=== PATIENT | female | born 2000 | race Caucasian/White ===

== ENCOUNTER 2018-06-02 17:22 | Emergency (ER) | payer BC ==
--- NOTE | 2018-06-02 17:10 | EDPHY ---
H & P Time Seen by Provider: 06/02/18 17:22 Constitutional: Initial Vital Signs Temperature (C) 36.7 C 06/02/18 17:22 Heart Rate 66 06/02/18 17:22 Respiratory Rate 16 06/02/18 17:22 Blood Pressure 104/75 06/02/18 17:22 O2 Sat (%) 100 06/02/18 17:22 O2 Delivery Mode Room Air Allergies/Adverse Reactions: No Known Allergies Allergy (Unverified 06/02/18 17:31) Home Medications: Medication Instructions Recorded NK [No Known Home Meds] 06/02/18 Medical Decision Making - Diagnostics Imaging Results: Imaging Impressions Head CT 06/02/18 17:27 Impression: Negative noncontrast CT of the head with no intracranial posttraumatic sequela identified. Results called and discussed with Mina Rosado MD on 06/02/2018 at 17:53. Imaging: Discussed imaging studies w/ personal injury law specialist Radiologist, I viewed and interpreted images myself ED Course/Re-evaluation: CHIEF COMPLAINT: Head injury while snowboarding HISTORY OF PRESENT ILLNESS: The patient is a 17 y/o female arriving via EMS after hitting a tree while snowboarding at [facility]. Per EMS the patient ran into a tree backwards with enough force to crack her helmet. It is unknown how fast she was going. The patient cannot remember the events prior to or after the collision. She also lost consciousness after the impact. Currently she has a frontal headache and generalized neck pain. She has not pain in her extremities and is not complaining of any other injury. No fever, body aches, lightheadedness, chest pain, heart palpitations, shortness of breath, cough, abdominal pain, urinary or bowel complaints, numbness, paresthesias. REVIEW OF SYSTEMS: A comprehensive 10 system review of systems is otherwise negative aside from elements mentioned in the history of present illness and medical decision making. PHYSICAL EXAM: HR, BP, O2 Sat, RR. Temp noted General Appearance: Alert, well hydrated, and non-toxic appearing. Head: Atraumatic without scalp tenderness or obvious injury Eyes: Pupils equal, round, reactive to light and accommodation, EOMI, no trauma , no injection. Ears: Clear bilaterally, no perforation, normal landmarks Nose: Atraumatic, no rhinorrhea, clear. Throat: There is no erythema or exudates, no lesions, normal tonsils, mucus membranes moist. Neck: Supple, 2+ carotid upstroke, nontender, no lymphadenopathy. Respiratory: No retractions, no distress, no wheezes, and no accessory muscle use. Lungs are clear to auscultation bilaterally. Cardiovascular: Regular rate and rhythm, no murmurs, rubs, or gallops. Bilateral carotid, radial, dorsalis pedis, and posterior tibial pulses intact. Good capillary refill all extremities. Gastrointestinal: Abdomen is soft, nontender, non-distended, no masses, no rebound, no guarding, no peritoneal signs. Musculoskeletal: Normal active ROM of all extremities, atraumatic. Neurological: Alert, appropriate, and interactive. Patient as anterograde and retrograde amnesia with loss of consciousness of an unknown time. The patient has normal DTRs and non-focal cranial nerves, motor, sensory, and cerebellar exam. Skin: No rashes, good turgor, no nodules on palpation. Past medical history: Denies Past surgical history: Denies Family history: Denies Social history: Lives in [place], single, not employed DIAGNOSTICS/PROCEDURES/CRITICAL CARE TIME: Head CT: No acute findings. DIFFERENTIAL DIAGNOSIS: The differential diagnosis for the patient's head injury included but was not limited to concussion, skull fracture, intra-parenchymal contusion, subarachnoid , subdural and epidural hematoma. MEDICAL DECISION MAKING: The patient is a 17 y/o female arriving via EMS after hitting a tree while snowboarding at [facility]. Per EMS the patient ran into a tree backwards with enough force to crack her helmet. On exam she has anterograde and retrograde amnesia with positive loss of consciousness. She is neurovascularly intact. Due to these symptoms she will need to have a head CT as she meets [place] Head CT requirements, which she is comfortable with. 175: I spoke with , radiologist, regarding patient's head CT which has not acute findings. Patient most likely has a concussion. 175: Reassessed patient and discussed imaging findings. I have advised her to follow up with Dr. Stone and follow post-concussive precautions. I have prescribed her Zofran for nausea and vomiting. Return precautions provided; patient is comfortable with this plan. Departure - Departure Disposition: Home, Routine, Self-Care Clinical Impression: Head injury Qualifiers: Encounter type: initial encounter Qualified Code(s): S09.90XA - Unspecified injury of head, initial encounter Concussion Qualifiers: Encounter type: initial encounter Loss of consciousness presence/duration: with LOC of 30 min or less Qualified Code(s): S06.0X1A - Concussion with loss of consciousness of 30 minutes or less, initial encounter Skiing accident Qualifiers: Encounter type: initial encounter Qualified Code(s): V00.328A - Other snow-ski accident, initial encounter Condition: Good Instructions: Concussion (ED), Head Injury (ED), Post Concussion Syndrome (ED) Additional Instructions: 1. Apply ice to sore areas and take 600mg ibuprofen every 6-8 hours or 650mg Tylenol every 4-6 hours for pain for the next few days. 2. Cognitive rest while symptoms are present. Avoid screen time including TV, phones, and computers until symptoms improve. 3. Physical rest while symptoms are present. Avoid any activities that could put you at further risk for a head injury until your symptoms resolve including contact sports, bicycling, etc. This may be 2 weeks or longer. 4. Follow up with Dr. Stone, head injury specialist, for unimproved symptoms over the next 10-14 days. It's not uncommon to experience fatigue, mood swings, and difficulty concentrating with concussions. 5. Return to the ED for severe headache, weakness or numbness on one side of your body, vision changes, or other worsening of condition. 6. Take Zofran as prescribed for nausea and vomiting. Referrals: Mary Carmen Stone MD [Medical Doctor] - As per Instructions Report Scribed for: Mina Rosado Report Scribed by: Edith Kong Date of Report: 06/02/18 Time of Report: 17:26
[2018-06-02] MEDS ORDERED: ONDANSETRON 4MG PREPACK#2 BTL TAKEHOME ONE (18:06)
[2018-06-02 18:22] VITALS: BP 107/67
== END 2018-06-02 18:22 | disposition home or self-care (01) ==
DX: S06.0X1A Concussion with loss of consciousness of 30 minutes or less, initial encounter (principal); M54.2 Cervicalgia; V00.322A Snow-skier colliding with stationary object, initial encounter; Y92.828 Other wilderness area as the place of occurrence of the external cause; Y93.23 Activity, snow (alpine) (downhill) skiing, snowboarding, sledding, tobogganing and snow tubing; Y99.9 Unspecified external cause status